=== PATIENT | female | born 1965 | race Two or more races ===

== ENCOUNTER 2025-03-04 13:47 | Emergency (ER) | payer MEDICARE, OTHER ==
[~2025-03-04] VITALS: Ht 157.5 cm; Wt 96.2 kg
[2025-03-04] MEDS ORDERED: CLOT15CR35 TP (14:48)
[2025-03-04] MEDS ORDERED: NAPR500T6 PO (17:54)
[2025-03-04 18:12] VITALS: BP 139/61; TEMP 98.3; O2SAT 97
== END 2025-03-04 18:14 ==
LOC: ER 14:04
DX: L30.8 Other specified dermatitis (principal); L30.4 Erythema intertrigo; B37.2 Candidiasis of skin and nail; R03.0 Elevated blood-pressure reading, without diagnosis of hypertension